=== PATIENT | female | born 1950 ===

== ENCOUNTER → 2018-09-02 | Day surgery (SDC) | payer MEDICARE, OTHER ==
[~2018-09-02] MED LIST: Etomidate 20 mg/10ml Inj IV ONE; Lidocaine 4% (Laryng-O-Jet) Kit MM ONE; Propofol 10 mg/ml Inj (20 ML) ONE
[2018-09-02 13:26] VITALS: BMI 45.1
--- NOTE | 2018-09-02 13:45 | CARD ---
APPROVED REPORT Date of service: 09/02/2018 EXAM: Transesophageal echocardiogram with color flow Doppler. INDICATION ASD Mitral Valve E/A ratio0.0 TDI E/Lateral E'0.0E/Medial E'0.0 Tricuspid Valve TR Peak [id number]/sTR Peak Gr.39mmHg Reason For Test : Rule out cardiac source of emboli. PROCEDURE After obtaining informed consent, patient underwent transesophageal echo in the [employer]. Type of Sedation : Conscious Sedation Sedation was provided by anesthesiologist. Sedation was administered by Anesthesia . Sedation was achieved with intravenously. Transesophageal probe was inserted and advanced into esophagus without difficulty. Echo enhancement indication: R/O Septal defect. Echo enhancement agent administered: Agitated Saline The ROXANA was performed without complications. Throughout the procedure, the blood pressure, pulse oximetry, cardiac rhythm, and rate were monitored. The patient tolerated the procedure without adverse effects. Recovery from conscious sedation was uneventful and vital signs were stable. LEFT VENTRICLE The left ventricle is normal size. There is mild to moderate left ventricular hypertrophy. The left ventricular function is normal. The left ventricular ejection fraction is within the normal range. The Ejection Fraction is 60-65%. There is normal LV segmental wall motion. Transmitral Doppler flow pattern is Grade I-abnormal relaxation pattern. No left ventricle thrombus noted on this study. There is no ventricular septal defect visualized. There is no left ventricular aneurysm. There is no mass noted in the left ventricle. RIGHT VENTRICLE The right ventricle is moderately to severely dilated. The right ventricle is mildly hypertrophied. The right ventricular systolic function is normal. ATRIA The left atrium is mildly dilated. The right atrium is moderately dilated. There is a large secundum type atrial septal defect. AORTIC VALVE The aortic valve is normal in structure. No aortic regurgitation is present. There is no aortic valvular stenosis. There is no aortic valvular vegetation. MITRAL VALVE The mitral valve is normal in structure. There is no evidence of mitral valve prolapse. There is no mitral valve stenosis. Mitral regurgitation is mild to moderate. TRICUSPID VALVE The tricuspid valve is normal in structure. There is moderate to severe tricuspid regurgitation. Right ventricular systolic pressure is estimated at 30-40 mmHg. There is mild pulmonary hypertension. There is no tricuspid valve prolapse or vegetation. There is no tricuspid valve stenosis. PULMONIC VALVE The pulmonary valve is normal in structure. There is no pulmonic valvular regurgitation. There is no pulmonic valvular stenosis. GREAT VESSELS The aortic root is normal in size. PERICARDIAL EFFUSION There is no pericardial effusion. <Conclusion> The left ventricular function is normal. The left ventricular ejection fraction is within the normal range. The Ejection Fraction is 60-65%. The right ventricle is moderately to severely dilated. The right ventricle is mildly hypertrophied. The right ventricular systolic function is normal. The right atrium is moderately dilated. There is a large secundum type atrial septal defect. There is moderate to severe tricuspid regurgitation. Right ventricular systolic pressure is estimated at 30-40 mmHg. There is mild pulmonary hypertension.
== END | disposition home or self-care (01) ==
LOC: C.CATHLAB 09:49
PROVIDERS: ATTEND Internal Medicine Interventional Cardiology
DX: Q21.1 Atrial septal defect (principal); I27.20 Pulmonary hypertension, unspecified
CPT/HCPCS: 93312; J2001; J2704

== ENCOUNTER 2018-10-28 07:02 | Day surgery (SDC) | payer MEDICARE, OTHER ==
[2018-10-28 07:37] VITALS: BMI 27.4
[2018-10-28] MEDS ORDERED: Iodixanol 320 MG/ML 100 ML BOTTLE IV ONE (07:48)
[2018-10-28] MEDS ORDERED: Verapamil 2 ML ONE (08:46)
[2018-10-28] MEDS ORDERED: Nitroglycerin 50mg in D5W 50 MG/250 ML BOTTLE IV ONE (08:46)
[2018-10-28] MEDS ORDERED: Midazolam 2 MG/2 ML VIAL ONE ×2 (09:18→09:43)
[2018-10-28 10:20] LABS: ARTERIAL BLOOD GAS HCO3 20.8 mmol/L (21-28); ARTERIAL BLOOD GAS O2 SAT 94.2 % (95-98); ARTERIAL BLOOD GAS PCO2 42 mm/Hg (35-45); ARTERIAL BLOOD GAS PH 7.31 (7.35-7.45); ARTERIAL BLOOD GAS PO2 64 mm/Hg (80-100); ARTERIAL BLOOD GAS TCO2 22.4 mmol/L (22-28)
[2018-10-28 10:26] LABS: VENOUS BLOOD GAS BASE EXCESS -11.5 mmol/L (0.0-2.0); VENOUS BLOOD GAS PCO2 32 mmHg (40-60); VENOUS BLOOD GAS PO2 55 mm/Hg (30-55); VENOUS BLOOD PH 7.26 (7.32-7.43)
[2018-10-28] MEDS ORDERED: Sodium Chloride 0.9% 500 ML IV SCH (10:30)
[2018-10-28 10:38] LABS: VENOUS BLOOD GAS BASE EXCESS -4.5 mmol/L (0.0-2.0); VENOUS BLOOD GAS PCO2 43 mmHg (40-60); VENOUS BLOOD GAS PO2 55 mm/Hg (30-55); VENOUS BLOOD PH 7.31 (7.32-7.43)
--- NOTE | 2018-10-28 22:44 | CARDCATH ---
PROCEDURE DATE: 10/28/2018 INDICATIONS: Ms. Pedroza is a 68-year old female, who was referred for evaluation of symptoms of dizziness, underwent ROXANA showing ASD, and subsequently was referred for surgical correction of this one. She was brought to the clinical genetics laboratory chief for evaluation for coronary status prior to surgical closure of the ASD secondary to recurrent episodes of TIA. PROCEDURE PERFORMED: Complete heart catheterization with selective left and right coronary angiogram via left distal radial arterial access approach and left brachial vein approach, 6-Urdu left distal radial arterial access and 7-Urdu left brachial venous access. ANGIOGRAPHIC FINDINGS: Right heart catheterization: Hemodynamics: RA pressures were 18/5 with a mean RA pressure of 10. RV pressures were 40/3 with a RV end diastolic pressure of 10 mmHg. PA pressures were 42/20 with a mean of 26. Pulmonary capillary wedge pressure was 15. Left ventricular end diastolic pressure was 13 mmHg. Left ventricular ejection fraction was 55% to 60%. CORONARY ANATOMY: Left main is a large-sized vessel that bifurcates into LAD and circumflex. LAD is a large-sized vessel and gives off two medium-sized diagonal branches. LAD proximal, mid, and distal 0%, and diagonal 0%. Left circumflex runs in the AV groove and gives off a medium-sized obtuse marginal branch. Proximal, mid, and distal circ 0% and obtuse marginal 0%. RCA is a large-sized vessel and gives off obtuse marginal branch and right PDA, free of any obstructive disease. IMPRESSION: Normal coronaries, normal ejection fraction, mildly elevated filling pressure, mild pulmonary hypertension. RECOMMENDATIONS: The patient can proceed with surgical correction of her ASD with Dr. Jose G Atkinson. Dylan Conroy MD
== END 2018-10-28 14:15 | disposition home or self-care (01) ==
LOC: C.CATHLAB 07:02
PROVIDERS: ATTEND Internal Medicine Interventional Cardiology
DX: I27.20 Pulmonary hypertension, unspecified (principal)
CPT/HCPCS: 82803; 93460; J1644; J2001; J2250; J3010; J7040; Q9967